=== PATIENT | male | born 1990 ===

== ENCOUNTER 2023-01-02 22:04 | Emergency (ER) | payer SELFPAY ==
[~2023-01-02] VITALS: Ht 182.9 cm; Wt 113.4 kg
[2023-01-02 22:09] VITALS: BP 140/79
== END 2023-01-03 02:59 | disposition left against medical advice (07) ==
LOC: M ED 22:04
DX: R21 Rash and other nonspecific skin eruption (principal); Z53.21 Procedure and treatment not carried out due to patient leaving prior to being seen by health care provider